=== PATIENT | male | born 2000 | race African-American/Black ===

== ENCOUNTER 2020-07-24 22:26 | Inpatient (IN) ==
[2020-07-24 23:16] LABS: ABS Lymphocytes 1.2 10^3/ul (1.0-4.8); ABS Monocytes 0.3 10^3/ul (0-0.8); ABS Neutrophils 3.3 10^3/ul (1.5-7.7); Eosinophil % 0.3 %; Hematocrit 45 % (42-52); Hemoglobin 15.6 g/dL (14.0-18.0); Lymphocyte % 24.9 %; Mean Corpuscular HGB Conc 35 g/dL (31-36); Mean Corpuscular Hemoglobin 30 pg (27-31); Mean Corpuscular Volume 86 fL (80-94); Mean Platelet Volume 9.6 fL (7.4-10.4); Nucleated Red Blood Cells % 0.1; Platelet Count 209 10^3/uL (150-450); Red Cell Distribution Width 14 % (10-15); White Blood Count 4.9 10^3/uL (3.5-10.8)
[2020-07-24 23:39] LABS: ALT 15 U/L (7-52); AST 22 U/L (13-39); Albumin 4.6 g/dL (3.2-5.2); Albumin/Globulin Ratio 1.4 (1-3); Alkaline Phosphatase 53 U/L (34-104); Anion Gap 7 mmol/L (2-11); BUN/Creatinine Ratio 10.9 (8-20); Blood Urea Nitrogen 10 mg/dL (6-24); CO2 Carbon Dioxide 25 mmol/L (22-32); Calcium 10.2 mg/dL (8.6-10.3); Chloride 105 mmol/L (101-111); EGFR African American 126.9 (>60); EGFR Non-African American 104.9 (>60); Globulin 3.2 g/dL (2-4); Glucose 103 mg/dL (70-100); Potassium 3.9 mmol/L (3.5-5.0); Sodium 137 mmol/L (135-145); Total Protein 7.8 g/dL (6.4-8.9)
[2020-07-24 23:52] LABS: Urine Appearance Clear; Urine Bilirubin Negative (Negative); Urine Blood Negative (Negative); Urine Color Straw; Urine Glucose Negative (Negative); Urine Ketones Negative (Negative); Urine Nitrite Negative (Negative); Urine Protein Negative (Negative); Urine Specific Gravity 1.005 (1.010-1.030); Urine Urobilinogen Negative (Negative)
[2020-07-24 23:54] LABS: Acetaminophen < 15 mcg/mL; Alcohol, S < 10 mg/dL (<10); Salicylate < 2.50 mg/dL (<30)
[2020-07-24 23:59] LABS: Urine Benzodiazepine Screen None Detected (None Detect); Urine Cannabinoids Screen None Detected (None Detect); Urine Opiates Screen None Detected (None Detect)
[2020-07-25 00:09] LABS: TSH Ultra Thyroid Stim Horm 1.07 mcIU/mL (0.34-5.60)
[2020-07-25] MEDS ORDERED: OLANzapine 5 mg TAB*ODT PO ONE (01:57)
[2020-07-25] MEDS ORDERED: Al Hydrox/Mg Hydrox/Simet LIQ 30 ML UDC PO PRN (03:27)
[2020-07-25] MEDS: Vitamin THERAPEUTIC TAB PO SCH (12:52)
[2020-07-25] MEDS: OLANzapine 5 mg TAB*ODT PO SCH (21:14)
[2020-07-26 08:10] LABS: HDL Cholesterol 36.3 mg/dL
[2020-07-26] MEDS: Vitamin THERAPEUTIC TAB PO SCH (09:13)
[2020-07-26] MEDS: OLANzapine 5 mg TAB*ODT PO SCH (20:39)
[2020-07-27] MEDS: Vitamin THERAPEUTIC TAB PO SCH (09:32)
[2020-07-27] MEDS: OLANzapine 5 mg TAB*ODT PO SCH (21:04)
[2020-07-28] MEDS: Vitamin THERAPEUTIC TAB PO SCH (11:06)
[2020-07-29] MEDS: Vitamin THERAPEUTIC TAB PO SCH (12:45)
[2020-07-30] MEDS: Vitamin THERAPEUTIC TAB PO SCH (11:52)
[2020-07-31] MEDS: Vitamin THERAPEUTIC TAB PO SCH (13:35)
[2020-08-01] MEDS: Vitamin THERAPEUTIC TAB PO SCH (08:12)
[2020-08-02] MEDS: Vitamin THERAPEUTIC TAB PO SCH (10:08)
[2020-08-03] MEDS: Vitamin THERAPEUTIC TAB PO SCH (14:54)
[2020-08-03] MEDS: OLANzapine 5 mg TAB*ODT PO SCH (23:39)
[2020-08-04] MEDS: Vitamin THERAPEUTIC TAB PO SCH (10:27)
[2020-08-04] MEDS: OLANzapine 5 mg TAB*ODT PO SCH (20:12)
[2020-08-05] MEDS: Vitamin THERAPEUTIC TAB PO SCH (13:36)
[2020-08-05] MEDS: OLANzapine 5 mg TAB*ODT PO SCH (22:33)
[2020-08-06] MEDS: Vitamin THERAPEUTIC TAB PO SCH (08:04)
[2020-08-06] MEDS: OLANzapine 5 mg TAB*ODT PO SCH (20:36)
[2020-08-07] MEDS: Vitamin THERAPEUTIC TAB PO SCH (12:13)
[2020-08-07] MEDS: OLANzapine 5 mg TAB*ODT PO SCH (21:54)
[2020-08-08] MEDS: Vitamin THERAPEUTIC TAB PO SCH (08:20)
[2020-08-08] MEDS: OLANzapine 5 mg TAB*ODT PO SCH (21:40)
[2020-08-09] MEDS: Vitamin THERAPEUTIC TAB PO SCH (07:42)
[2020-08-09] MEDS: OLANzapine 5 mg TAB*ODT PO SCH (21:34)
[2020-08-10] MEDS: Vitamin THERAPEUTIC TAB PO SCH (10:54)
[2020-08-10] MEDS: OLANzapine 5 mg TAB*ODT PO SCH (22:09)
[2020-08-11] MEDS: Vitamin THERAPEUTIC TAB PO SCH (10:40)
[2020-08-11] MEDS: OLANzapine 5 mg TAB*ODT PO SCH (20:36)
[2020-08-12] MEDS: Vitamin THERAPEUTIC TAB PO SCH (20:01)
[2020-08-12] MEDS: OLANzapine 5 mg TAB*ODT PO SCH (21:39)
[2020-08-13] MEDS: Vitamin THERAPEUTIC TAB PO SCH ×2 (10:12→10:24)
[2020-08-13] MEDS: OLANzapine 5 mg TAB*ODT PO SCH (20:28)
[2020-08-14] MEDS: Vitamin THERAPEUTIC TAB PO SCH (10:52)
[2020-08-14] MEDS: OLANzapine 5 mg TAB*ODT PO SCH (22:01)
[2020-08-15] MEDS: Vitamin THERAPEUTIC TAB PO SCH (08:55)
[2020-08-15] MEDS: OLANzapine 5 mg TAB*ODT PO SCH (20:37)
[2020-08-16] MEDS: Vitamin THERAPEUTIC TAB PO SCH (09:52)
[2020-08-16] MEDS: OLANzapine 5 mg TAB*ODT PO SCH (22:21)
[2020-08-17] MEDS: Vitamin THERAPEUTIC TAB PO SCH (08:26)
[2020-08-17] MEDS: OLANzapine 5 mg TAB*ODT PO SCH (21:15)
[2020-08-18 08:44] VITALS: BP 108/55
[2020-08-18] MEDS: Vitamin THERAPEUTIC TAB PO SCH (09:28)
== END 2020-08-18 09:10 | disposition home or self-care (01) | DRG 885 ==
LOC: ED 22:26 → BSU 07-25 03:05
PROVIDERS: ADMIT Psychiatry & Neurology Psychiatry; ATTEND Psychiatry & Neurology Psychiatry